=== PATIENT | female | born 2000 | race Hispanic/Latino ===

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

== ENCOUNTER 2023-06-17 09:25 | Emergency (ER) | payer OTHER, SELFPAY ==
[2023-06-17 10:29] VITALS: BP 109/73; PULSE 99; RESP 16; TEMP 37.4; O2SAT 100
--- NOTE | 2023-06-17 10:47 | ED.GENADULT ---
HPI - General Adult General Chief complaint: Upper Respiratory Infection Stated complaint: fever,body pain Time Seen by Provider: 06/17/23 10:47 Source: patient Mode of arrival: ambulatory Limitations: no limitations History of Present Illness HPI narrative: 22-year-old female patient presents to [facility] today with complaints of fever, chills, abdominal pain on the left lower side, and body aches since yesterday morning. Patient states she had travel recently to [place] and started feeling her symptoms yesterday morning and tried to ignore the symptoms and was feeling a little bit better during the day while they were traveling. Patient states she went out with her friends last night but then realized that she was not feeling as well as she thought and started having the fevers, chills, body aches. she reports that felt so unwell this morning that she wanted to get tested to see what she had. patient states she took ibuprofen last night Tylenol this morning for her symptoms Related Data Home Medications Medication Instructions Recorded Confirmed No Home Medications 06/17/23 06/17/23 Allergies Allergy/AdvReac Type Severity Reaction Status Date / Time No Known Allergies Allergy Verified 06/17/23 10:31 Review of Systems Review of Systems: CONSTITUTIONAL: positive fever, chills, generalized body aches and sweats. EYES: Denies visual changes, redness, or discharge. ENT: Denies rhinorrhea, congestion, positive sore throat, and denies otalgia. CARDIOVASCULAR: Denies chest pain, palpitations, or edema. RESPIRATORY: Denies cough or dyspnea. GASTROINTESTINAL: positive abdominal pain on the left lower side, positive nausea, denies vomiting and diarrhea. GENITOURINARY: Denies dysuria or hematuria. SKIN: Denies rash or itching. MUSCULOSKELETAL: Denies back pain, joint pain, or myalgia. NEUROLOGIC: positive headache, denies numbness and weakness. PSYCHIATRIC: Denies anxiety or depression. COUNTS INCLUDE 234 BEDS AT [facility] Past Medical History Medical History (Updated 06/17/23 @ 11:03 by ELDER Giles) No significant past medical history Comments At the time of my signature I agree with nursing past medical history, surgical, social, and family history. There is no relevant family history pertinent to the presenting complaint. Exam Narrative: GENERAL: ill-appearing, well-nourished, and in no acute distress. HEAD: Normocephalic, atraumatic. EYES: PERRLA and EOMI. ENT: Nares clear, no rhinorrhea, no epistaxis . Mucous membranes moist, bilateral turbinates are edematous and erythematous. posterior oropharynx is erythematous bilateral tonsils 2+ position without exudate. NECK: Supple. No lymphadenopathy CHEST: Clear to auscultation. No respiratory distress. HEART: regular rate and rhythm. No murmur heard. Normal peripheral pulses. ABDOMEN: Soft, flat, slight tenderness noted on the left lower quadrant, nondistended, normal active bowel sounds. EXTREMITIES: Normal range of motion. No edema. SKIN: hot to touch, clammy, no rash. NEURO: No focal deficits. Alert and oriented x3. Course Course Level of Care: Express Care Visit Vital Signs Vital signs: Vital Signs Temperature 37.4 C 06/17/23 10:29 Pulse Rate 99 06/17/23 10:29 Respiratory Rate 16 06/17/23 10:29 Blood Pressure 109/73 06/17/23 10:29 Pulse Oximetry 100 06/17/23 10:29 Oxygen Delivery Room Air 06/17/23 10:29 Temperature 37.4 C 06/17/23 10:29 Pulse Rate 99 06/17/23 10:29 Respiratory Rate 16 06/17/23 10:29 Blood Pressure 109/73 06/17/23 10:29 Pulse Oximetry 100 06/17/23 10:29 Oxygen Delivery Room Air 06/17/23 10:29 vital signs reviewed Medical Decision Making MDM Narrative Medical decision making narrative: swab results came back negative for flu, strep, and COVID. results discussed with patient and discussed symptom management with rest and hydration. Patient agreed. Differential Diagnosis
== END 2023-06-17 11:06 | disposition home or self-care (01) ==
PROVIDERS: Emergency Provider Nurse Practitioner Family
DX: B34.9 Viral infection, unspecified (principal); Z20.822 Contact with and (suspected) exposure to COVID-19
CPT/HCPCS: 87081; 87426; 87804; 87880; 99213; C9803; G0463

== ENCOUNTER 2023-08-20 11:17 | Emergency (ER) | payer OTHER, SELFPAY ==
--- NOTE | 2023-08-20 11:24 | ED.URI ---
HPI - URI/Sore Throat General Chief Complaint: Upper Respiratory Infection Stated Complaint: chest and neck pain,cough Time Seen by Provider: 08/20/23 11:24 Source: patient Mode of arrival: ambulatory Limitations: no limitations History of Present Illness HPI Narrative: Patient is a 22-year-old female that presents with cough, sore throat and chest wall pain with coughing for 3 days. Patient reports 1 episode of vomiting after coughing fit last night. Patient has been taking DayQuil and NyQuil. States she felt sweaty but did not take her temperature. Patient had surgery 2 weeks ago and was intubated. Related Data Home Medications Medication Instructions Recorded Confirmed ergocalciferol (vitamin D2) 1,250 1,250 mcg PO WEEKLY 08/20/23 08/20/23 mcg (50,000 unit) capsule valacyclovir 1 gram tablet 1,000 mg PO BID 08/20/23 08/20/23 Allergies Allergy/AdvReac Type Severity Reaction Status Date / Time No Known Allergies Allergy Verified 08/20/23 11:44 Review of Systems Review of Systems: All systems reviewed & are unremarkable except as noted in HPI and below Constitutional: Constitutional: Denies body ache(s), Denies chills, Denies fatigue, Denies fever(s), Denies headache(s), Denies malaise and Denies weakness Eyes: Eyes: Denies blurry vision, Denies itchy eyes and Denies loss of vision ENT: Denies otalgia, Denies headache(s), Denies nasal congestion, Denies sinus pain and Reports sore throat Cardiovascular: Cardiovascular: Denies chest pain, Denies irregular heart rhythm and Denies dyspnea Respiratory: Respiratory: Reports chest congestion, Reports cough, Reports pain with cough and Denies dyspnea Gastrointestinal: Gastrointestinal: Denies abdominal pain, Denies diarrhea, Denies nausea and Denies vomiting Musculoskeletal: Musculoskeletal: Denies back pain, Denies myalgias and Denies arthralgias Integumentary/Breasts: Skin/Breast: Denies pruritus and Denies rash Neurologic: Denies headache(s), Denies loss of vision and Denies weakness Psychiatric: Psychiatric: Reports no additional psychiatric complaints Endocrine: Endocrine: Denies fatigue Allergic/Immunologic: Allergic/Immunologic: Denies itchy eyes PMFSH Past Medical History Medical History HSV-1 infection HSV-2 infection No significant past medical history Surgical History Surgical History [place] teeth removed Family History Family History Father Hypertension Social History Social History Smoking status: Never smoker Alcohol intake: never Substance use: never Lack of Transportation: No Lack of Food: Never True Current Housing: I Have Housing Concerned About Future Housing: No Difficulty Paying Gas/Electric Bills: No Difficulty Paying for Meds: No Currently Unemployed: No Education: High School Diploma/GED Difficulty w/ Childcare or Family Care: No Living arrangements: with family Occupation/Education: unemployed Gender identity (if verbalized by the patient): Female Sexual Orientation (if Verbalized by the Patient): Straight or Heterosexual Comments At time of signature, agree with nursing past medical, surgical, social and family history. There is no relevant family history pertinent to the presenting complaint. Exam Const: General: cooperative, healthy appearing, comfortable, no acute distress and well nourished Nutritional Appearance: well nourished Orientation/consciousness: patient oriented x3 Limitations: no limitations HENMT: Head: normal to inspection, normocephalic and atraumatic Ears: hearing grossly normal bilaterally, external ears normal, TM's normal bilaterally, EAC's normal and no periauricular adenopathy Face/Nose/Sinus: Normal external nose present, Abnormal muco
[2023-08-20 12:00] VITALS: BP 133/82; PULSE 88; RESP 16; TEMP 36.1; O2SAT 100
== END 2023-08-20 12:19 | disposition home or self-care (01) ==
PROVIDERS: Emergency Provider Nurse Practitioner Family; PCP Emergency Medicine
DX: J06.9 Acute upper respiratory infection, unspecified (principal)
CPT/HCPCS: 87081; 87880; 99213; G0463